=== PATIENT | male | born 1955 | race Caucasian/White ===

== ENCOUNTER 2022-03-28 11:25 | Outpatient (CLI) | payer OTHER, SELFPAY ==
[2022-03-28 14:29] LABS: TSH With Reflex to FT4* 0.192 uIU/mL (0.270-4.200)
== END 2022-03-28 11:26 | disposition home or self-care (01) ==
PROVIDERS: PCP Family Medicine; Visit Provider Family Medicine
DX: E03.9 Hypothyroidism, unspecified (principal)
CPT/HCPCS: 84439; 84443

== ENCOUNTER 2022-07-05 16:07 | Outpatient (CLI) | payer OTHER, SELFPAY | END 2022-07-05 16:08 | disposition home or self-care (01) | PROVIDERS: PCP Family Medicine; Visit Provider Family Medicine | DX: E03.9 Hypothyroidism, unspecified (principal) | CPT/HCPCS: 84443 ==

== ENCOUNTER 2022-08-08 13:49 | Outpatient (CLI) | payer OTHER, SELFPAY ==
[2022-08-08 22:01] LABS: Chloride* 103 mmol/L (96-114); Sodium* 138 mmol/L (135-149)
[2022-08-08 22:04] LABS: Carbon Dioxide* 31 mmol/L (20-32); Creatinine* 0.8 mg/dL (0.5-1.5); Estimated Glomerular Filt Rate 97 ml/min
[2022-08-08 22:05] LABS: Blood Urea Nitrogen* 12 mg/dL (7-30); Calcium* 8.9 mg/dL (8.4-10.6); Glucose* 94 mg/dL (60-115)
== END 2022-08-08 13:50 | disposition home or self-care (01) ==
LOC: LKVREF 13:50
PROVIDERS: PCP Family Medicine; Visit Provider Emergency Medicine
DX: Z01.818 Encounter for other preprocedural examination (principal)
CPT/HCPCS: 80048

== ENCOUNTER 2022-08-10 09:10 | Day surgery (SDC) | payer OTHER, SELFPAY ==
[2022-08-10] VITALS (10 sets, daily range): BP systolic 115–145; BP diastolic 81–106; PULSE 68–80; RESP 14–20; TEMP 36.4–36.8; O2SAT 95–98; BMI 32.6
[2022-08-10] MEDS: LACTATED RINGERS 1000 ML 1,000 ML 100 ML IV (09:40)
[2022-08-10] MEDS: SODIUM CHLORIDE 0.9 % (FLUSH) 10 ML SYRINGE IVF (09:40)
--- NOTE | 2022-08-10 09:52 | SUR.PREOP ---
VISUALIZED PATIENTS HOME COVID, RESULTS NEGATIVE.
[2022-08-10] MEDS: BUPIVACAINE 0.25% 30 ML INJECTION (11:25)
--- NOTE | 2022-08-10 11:28 | W.ANESCHARGE ---
Anesthesia Charges Start Date/Time Anesthesia Start Date: 08/10/22 Anesthesia Start Time: 11:09 Stop Date/Time Anesthesia Stop Date: 08/10/22 Anesthesia Stop Time: 12:10 Summary Emergency: No
--- NOTE | 2022-08-10 11:41 | W.ANESCHARGE ---
Anesthesia Charges Start Date/Time Anesthesia Start Date: 08/10/22 Anesthesia Start Time: 11:09 Stop Date/Time Anesthesia Stop Date: 08/10/22 Anesthesia Stop Time: 12:10 Summary Emergency: No
--- NOTE | 2022-08-10 12:04 | PM.GSPRC ---
Operative Note Date of procedure: 08/10/22 Pre-op diagnosis: Umbilical hernia Post-op diagnosis: Same Type of Procedure: Open umbilical hernia repair with mesh Procedure Description: After discussing the risks and benefits of the procedure, the patient signed informed consent.? The operative site was marked and the patient was brought to the operating room and placed on the operating table in supine position.? Care was taken to pad the patient's pressure points.?? The patient was then intubated by anesthesia.?? The operative site was then prepped and draped in the usual sterile fashion.? A time-out was then performed. Local anesthetic was injected into the fascia, skin and subcutaneous tissues. A curvilinear incision was made at the umbilicus. Dissection was carried down into the subcutaneous tissue using cautery. The hernia sac was encountered and care was taken to not enter it. Dissection was taken down to the fascia, and the umbilical stalk was carefully dissected off of the hernia sac. Once the hernia sac was dissected out circumferentially, it was reduced. The fascial edges were then cleared circumferentially. The hernia was 2 cm in size and so the decision was made to use a piece of mesh. A preperitoneal pocket was created using a combination of blunt dissection and cautery. Hemostasis appeared adequate. Once the posterior fascia was clear, a piece of Ventralex ST hernia mesh was placed in the preperitoneal space with care to ensure that it laid flat. This was secured into place using 2 0 PDS interrupted sutures. The tails were then trimmed and the fascial opening was closed with a 0 0 Nurolon in a [id number] fashion. The umbilicus was reapproximated to the fascia with Vicryl. The skin was then closed with running absorbable suture. A sterile dressing was then applied. ? The patient was then woken and transported to the recovery area in stable condition. ? The patient tolerated the procedure well. Indications: The patient is a 67-year-old male with an umbilical hernia that has become increasingly symptomatic for him. After discussion of risks and benefits he has elected to proceed with repair. Findings: 2 cm fat containing umbilical hernia repaired with mesh. Anesthesia: GETA Surgeon: Chanda Goel MD Estimated blood loss (mL): 5 Condition: stable Disposition: PACU
--- NOTE | 2022-08-10 12:39 | SUR.PHASEI ---
patient meets pacu d/c criteria
== END 2022-08-10 13:38 | disposition home or self-care (01) ==
PROVIDERS: PCP Family Medicine; Visit Provider Surgery
PROC: (CPT 49585; principal; 2022-08-10 10:45)
DX: K42.9 Umbilical hernia without obstruction or gangrene (principal)
CPT/HCPCS: 49585; 00830; C1781; J1100; J2250; J2405; J2704; J3010; J3490; J7120

== ENCOUNTER 2023-04-05 08:32 | Outpatient (CLI) | payer OTHER, SELFPAY | END 2023-04-05 08:33 | disposition home or self-care (01) | LOC: NFLDREF 04-07 11:01 | PROVIDERS: PCP Family Medicine; Referring Provider Family Medicine; Visit Provider Family Medicine | DX: Z00.00 Encounter for general adult medical examination without abnormal findings (principal); E03.9 Hypothyroidism, unspecified; R73.01 Impaired fasting glucose; N52.9 Male erectile dysfunction, unspecified; Z86.39 Personal history of other endocrine, nutritional and metabolic disease; Z13.6 Encounter for screening for cardiovascular disorders | CPT/HCPCS: 80048; 80061; 84153; 84443 ==

== ENCOUNTER 2024-06-10 08:23 | Outpatient (CLI) | payer MEDICARE, SELFPAY ==
--- OUTSIDE RECORDS SUMMARY | 2024-06-10 14:26 | XMS_ITS | Clinical Summary ---
Author Organization [facility] Address [address] [place] [address] Care Team Providers Care Brick Siding Applicator Name Role Phone Elsewhere, Pcp Primary Care Provider Unavailabl e Source Comments Patient records contain information from all sites at [facility]. For routine questions regarding patient records, call [phone] during business hours, M-F 8:00 AM - 5:00 PM Central Time. Record requests for emergency care only can be directed to [phone] at any time.[facility] Allergies Active Allergy Reactions Criticality Noted Date Comments Sulfa (Sulfonamide Antibiotics) Other (see comments) 07/26/2012 Medications * This document contains information received from the source organization and may not represent a complete record from that organization. tadalafil (CIALIS) 10 mg tablet Take 0.25-1 tablets by mouth daily as needed. 11/21/2016 Active naproxen (for_NAPROSYN) 500 mg tablet Take 1 tablet by mouth 2 (two) times a day as needed. 09/30/2015 Active loratadine (for_CLARITIN) 10 mg tablet Take 1 tablet by mouth daily. 02/01/2010 Active levothyroxine (for_SYNTHROID, LEVOTHROID) 100 mcg tablet Take 1 tablet by mouth daily. 11/22/2016 Active diazePAM (VALIUM) 5 mg tablet Take 0.5-1 tablets by mouth 3 (three) times a day as needed. Take one hour prior to dental appointments. 09/30/2015 Active carboxymethylce llulose (REFRESH LIQUIGEL) 1 % ophthalmic solution Refresh Liquigel 04/18/2011 Active FeroSuL 325 mg (65 mg iron) tablet Take 65 mg of iron by mouth daily. 02/25/2021 Active pantoprazole (PROTONIX) 40 mg EC tablet Take 40 mg by mouth daily. 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 Overview (01/02/2017): Spondylitis, ankylosing Immunizations Name Administration Dates Next Due Influenza, Seasonal, Injectable 05/29/2007 Influenza, Unspecified 06/02/2011 PPSV23 05/02/2005 Td Preservative Free (TENIVAC, DECAVAC) 05/02/20 Tdap 08/28/2013 Social History Tobacco Use Types Packs/Day Years Used Date Smoking Tobacco: Former Cigarettes Smokeless Tobacco: Never Tobacco Cessation:Counseling Given: No Alcohol Use Standard Drinks/Week Comments No 0 (1 standard drink = 0.6 oz pur e alcohol) Humiliation, Afraid, Rape, and Kick questionnair e Answer Date Recorded Within the last year, have y ou been afraid of your partner or ex-partner? No 04/12/2023 Within the last year, have y ou been humiliated or emotionally abused in other ways by your partner or ex-partner? No Within the last year, have y ou been kicked, hit, slapped, or otherwise physically hurt by your partner or ex-partner? No 04/12/2023 Within the last year, have y ou been raped or forced to have any kind of sexual activity by your partner or ex-partner? No 04/12/2023 Social Connection and Isolat ion Panel [NHANES] Answer Date Recorded In a typical week, how many times do you talk on the phone with family, friends, or neighbors? More than three times a week 03/17/2021 How often do you get togethe r with friends or relatives? Twice a week 03/17/2021 How often do you attend [facility] or voodoo services? 1 to 4 times per year 03/17/2021 Do you belong to any clubs o r organizations such as catholic groups, unions, fraternal or athletic groups, or school groups? Yes 03/17/2021 How often do you attend meet ings of the clubs or organizations you belong to? More than 4 times per year 03/17/2021 Are you , , di vorced, , never , or living with a partner? 03/17/2021 AUDIT-C Answer Date Recorded Q1: How often do you have a drink containing alc ohol? Never 03/17/2021 Average Number of Drinks Not on file 021 Frequency of Binge Drinking Not on file 12/2020 Overall Financial Resource Strain (CARDIA) Answe r Date Recorded How hard is it for you to pa y for the very basics like food, housing, medical care, and heating? Not hard at all 04/12/2023 PHQ-2 Answer Date Recorded PHQ-2 Score 0 04/11/2021 [facility] Occupat [facility] - Occupational Stress Questionnaire Answer Date Recorded Do you feel stress - tense, restless, nervous, or anxious, or unable to sleep at night because your mind is troubled all the time - these days? Only a little 03/17/2021 Exercise Vital Sign Answer Date Recorde d On average, how many days pe r week do you engage in moderate to strenuous exercise (like a brisk walk)? 2 days 04/12/2023 On average, how many minutes do you engage in exercise at this level? 30 min 04/12/2023 Hunger Vital Sign Answer Date Recorded Within the past 12 months, y ou worried that your food would run out before you got the money to buy more. Never true 04/12/20 23 Within the past 12 months, t he food you bought just didn't last and you didn't have money to get more. Never true 04/12/2023 PRAPARE - Transportation Answer Date Re corded In the past 12 months, has l ack of transportation kept you from medical appointments or from getting medications? No 03/15 In the past 12 months, has l ack of transportation kept you from meetings, work, or from getting things needed for daily living? No 04/12/2023 Nutrition Answer Date Recorded Nutrition: EVOO Fat Source Yes 04/12 On average, how many serving s of fruits and vegetables do you eat per day (serving size is equal to 1 cup or approximately the size of a tennis ball)? 5 or more 04/12/2023 Dental Answer Date Recorded Dental: Regular Dentist Yes 08/20/19 Employment Answer Date Recorded Employment status Retired 04/12/2023 Housing Stability Answer Date Recorded What is your living situation today? I have a [facility] place to live 04/12/2023 Education Answer Date Recorded What is the highest level of school you have completed or the highest degree you have received? Associate degree: occupational, technical, or vocational program 03/17/2021 Sex and Gender Information Value Date Recorded Sex Assigned at Male 12/27/2019 6:45 PM CDT Legal Sex Male 10:19 PM HEAD BAKER Gender Identity Male 09/14/2017 7:49 AM HEAD BAKER Sexual Orientation Straight 09/14/2017 7: 49 AM HEAD BAKER Last Filed Vital Signs Vital Sign Reading Time Taken Comments Blood Pressure 127/87 04/11/2021 8:41 AM CDT Pulse 65 04/11/2021 8:41 AM CDT Temperature 36.1 ??C (97 ??F) 04/11/2021 8:41 AM CDT Respiratory Rate 16 04/11/2021 8:41 AM CDT Oxygen Saturation 98% 04/11/2021 8:41 AM CDT Inhaled Oxygen Concentration - - Weight 85.5 kg (188 lb 7.9 oz) 04/11/2021 8:41 A M CDT Height 168.2 cm (5' 6.22) 04/11/2021 8:41 AM CD T Body Mass Index 30.22 04/11/2021 8:41 AM CDT Plan of Treatment Health Maintenance Due Date Last Done Comments Abdominal Aortic Aneurysm (A AA) Screen 1955 CT Colonography 1955 Cologuard 1955 FIT 1955 Hepatitis C Screening 1955 Zoster Vaccines (1 of 2) 2005 Fasting Glucose for Diabetes Screening 08/28/2016 08/28/2013, 03/05/2012 Thyroid Stimulating Hormone (TSH) test for thyroid function 11/21/2017 11/21/2016, 05/15/2013, 09/02/2012, Additional history exists Pneumococcal vaccine (65+ ye ars) (2 of 2 - PCV) 2020 05/02/2005 Depression Screening (Annual PHQ-2) 08/13/2023 Fall Risk Screen (Annual) 08/13/2023 DTaP,Tdap,and Td Vaccines (2 - Td or Tdap) 08/28/2023 08/28/2013, 05/02/2005 COVID-19 Vaccine (1 - 2023-2 5 season) 2024 Influenza Vaccine (#1) 2024 1, 05/29/2011, 05/30/2010, Additional history exists Colonoscopy 04/29/2031 04/29/2021, 05/30/2005 Colorectal Cancer Screening 04/29/2031 Procedures Procedure Name Priority Date/Time Associated Diagnosis Comments THYROID-STIMULATING HORMONE-SENSITIVE (S-TSH) Routine 11/21/2016 11:32 AM CDT RENAL FUNCTION PANEL, S Routine 08/28/2013 9:53 AM HEAD BAKER from Last 3 Months or Most Recently Relevant to Health Maintenance Results * Thyroid-Stimulating Hormone-Sensitive (s-TSH) (11/21/2016 11:32 AM CDT) TSH (Thyrotropin) 1.20 0.27 - 4.20 MIUL POWERCHART Comment: Biotin has been identified by the wood router hand as a potential interfering substance. Higher concentrations of biotin may be found in multivitamins, hair/nail supplements, and workout supplements. If the result does not match clinical observations, repeat testing after patient refrains from the use of supplements for at least 12 hours. Blood 11/21/2016 11:3 2 AM CDT us Meghann Felix APRN, C.N.P., M.S.N. LAB BLO OD ADD-ON Final Result POWERCHART * (ABNORMAL) Renal Function Panel (08/28/2013 9:53 AM HEAD BAKER) BUN (Blood Urea Nitrogen), S 13 8 - 24 MGDL POWERCHART Chloride, S 100 98 - 107 MMOLL POWERCHART CO2 Total 30(H) 22 - 29 MMOLL POWERCHART Creatinine 0.8 0.8 - 1.3 MGDL POWERCHART Glucose 103 70 - 139 MGDL POWERCHART Calcium, Total, S 9.2 8.9 - 10.1 MGDL POWERCHART Sodium, S 138 135 - 145 MMOLL POWERCHART Potassium, S 4.1 3.6 - 5.2 MMOLL POWERCHART Albumin, S 4.2 3.2 - 5.2 GDL POWERCHART Phosphorus (Inorganic), S 2.7 2.5 - 4.5 MGDL POWERCHART HXeGFR (MDRD) >60 >=60 [id number] POWERCHART HXCA Corrected 9(H) 0 - 0 MGDL POWERCHART eGFR Black/ >60 >=60 [id number] POWERCHART Blood 08/28/2013 9:53 AM HEAD BAKER us Kenny Foster M.D. LAB BLOOD ADD-ON Final Resul t POWERCHART from Last 3 Months or Most Recently Relevant to Health Maintenance Care Teams Brick Siding Applicator Relationship Specialty Start Date End Date Elsewhere, Pcp PCP - General Family Medicine 04/04/18
--- OUTSIDE RECORDS SUMMARY | 2024-06-10 14:27 | XMS_ITS | Encounter Summary ---
Author Organization [facility] Address [address] [place] [address] Care Team Providers Care Associate Entertainment Editor Name Role Phone Elsewhere, Pcp Primary Care Provider Unavailabl e Encounter Details Date Type Department Care Team (Late st Contact Info) Description 09/09/2014 Historical Ophthalmology [facility] Ever Remy Jr., M.D. [address] [place] [phone] Social History Tobacco Use Types Packs/Day Years Used Date Smoking Tobacco: Never Assessed Sex and Gender Information Value Date Recorded Sex Assigned at Male 12/27/2019 6:45 PM CDT Legal Sex Male 10:19 PM CHIEF SPECIALIST LEED Gender Identity Male 09/14/2017 7:49 AM CHIEF SPECIALIST LEED Sexual Orientation Straight 09/14/2017 7: 49 AM CHIEF SPECIALIST LEED documented as of this encounter Progress Notes * Ever Remy M.D. - 09/09/2014 1:04 PM CST Eye General HISTORY OF PRESENT ILLNESS PT WITHOUT CONCERNS. IMPRESSION / REPORT / PLAN A) Doing well, s/p ACIOL OS for IOL exchange for dislocated IOL P) MR only if desired, RTo 1year CDM Reports - EYEGEN Id: [id number] Status: Fnl documented in this encounter Plan of Treatment Not on file documented as of this encounter Visit Diagnoses Not on filedocumented in this encounter Additional Health Concerns Infection Onset Date Last Indicated Resolved Time COVID19 Pending 04/24/2021 2021 04/27/2021 9 :07 AM CDT documented as of this encounter Care Teams Associate Entertainment Editor Relationship Specialty Start Date End Date Elsewhere, Pcp PCP - General Family Medicine 04/04/18 documented as of this encounter
--- OUTSIDE RECORDS SUMMARY | 2024-06-10 14:27 | XMS_ITS | Referral Summary ---
Author Organization [facility] Address [address] [place] [address] Care Team Providers Care Metal Numerical Tool Programmer Name Role Phone Elsewhere, Pcp Primary Care Provider Unavailabl e Source Comments Patient records contain information from all sites at [facility]. For routine questions regarding patient records, call [phone] during business hours, M-F 8:00 AM - 5:00 PM Central Time. Record requests for emergency care only can be directed to [phone] at any time.[facility] Allergies Active Allergy Reactions Criticality Noted [...] week 03/17/2021 How often do you attend [facility] or adventist services? 1 to 4 times per year 03/17/2021 Do you belong to any clubs o r organizations such as evangelical groups, unions, fraternal or athletic groups, or [...] Answer Date Recorded PHQ-2 Score 0 04/11/2021 [facility] of Occupat ional [facility] - Occupational Stress Questionnaire Answer Date Recorded [...] your living situation today? I [facility] [employer] [facility] to live 04/12/2023 Education Answer Date Recorded What is the highest level of school you have completed or the highest degree you have received? Associate degree: occupational, technical, or vocational program 03/17/2021 Sex and Gender Information Value Date Recorded Sex Assigned at Male 12/27/2019 6:45 PM CDT Legal Sex Male 10:19 PM CAUSTICS LOADER Gender Identity Male 09/14/2017 7:49 AM CAUSTICS LOADER Sexual Orientation Straight 09/14/2017 7: 49 AM CAUSTICS LOADER Last Filed Vital Signs Vital Sign Reading [...] 04/11/2021 8:41 AM CDT Plan of Treatment Not on file Procedures Procedure Name Priority Date/Time Associated Diagnosis Comments THYROID-STIMULATING HORMONE-SENSITIVE (S-TSH) Routine 11/21/2016 11:32 AM CDT RENAL FUNCTION PANEL, S Routine 08/28/2013 9:53 AM CAUSTICS LOADER from Last 3 Months or Most Recently Relevant to Health Maintenance Results * Thyroid-Stimulating Hormone-Sensitive (s-TSH) (11/21/2016 11:32 AM CDT) TSH (Thyrotropin) 1.20 0.27 - 4.20 MIUL POWERCHART Comment: Biotin has been identified by the oracle database developer as a potential interfering substance. Higher concentrations of biotin may be found in multivitamins, hair/nail supplements, and workout supplements. If the result does not match clinical observations, repeat testing after patient refrains from the use of supplements for at least 12 hours. Blood 11/21/2016 11:3 2 AM CDT us Andrés Villarreal APRN.N.P., M.S.N. LAB BLO OD ADD-ON Final Result POWERCHART * (ABNORMAL) Renal Function Panel (08/28/2013 9:53 AM CAUSTICS LOADER) BUN (Blood Urea Nitrogen), S 13 8 [...] 4.5 MGDL POWERCHART HXeGFR (MDRD) >60 >=60 [id number] POWERCHART HXCA Corrected 9(H) 0 - 0 MGDL POWERCHART eGFR Black/ >60 >=60 [id number] POWERCHART Blood 08/28/2013 9:53 AM CAUSTICS LOADER us Kenny Foster M.D. LAB BLOOD ADD-ON Final Resul t POWERCHART from Last 3 Months or Most Recently Relevant to Health Maintenance Care Teams Metal Numerical Tool Programmer Relationship Specialty Start Date End Date Elsewhere, Pcp PCP - General Family Medicine 04/04/18
--- OUTSIDE RECORDS SUMMARY | 2024-06-10 14:27 | XMS_ITS | Encounter Summary ---
Author Organization [facility] Address [address] [place] [address] Care Team Providers Care Director Of Occupational Therapy Name Role Phone Elsewhere, Pcp Primary Care Provider Unavailabl e Encounter Details Date Type Department Care Team (Late st Contact Info) Description 11/06/2016 Historical Ophthalmology [facility] Ever Remy Jr., M.D. [address] [place] [phone] Social History Tobacco Use Types Packs/Day Years Used Date Smoking Tobacco: Never Sex and Gender Information Value Date Recorded Sex Assigned at Male 12/27/2019 6:45 PM CDT Legal Sex Male 10:19 PM PLANOGRAPH OPERATOR Gender Identity Male 09/14/2017 7:49 AM PLANOGRAPH OPERATOR Sexual Orientation Straight 09/14/2017 7: 49 AM PLANOGRAPH OPERATOR documented as of this encounter Progress Notes * Ever Remy M.D. - 11/06/2016 9:39 AM CDT Eye General CHIEF COMPLAINT CE HISTORY OF PRESENT ILLNESS Last exam was 1 year ago Pt. denies any changes to the [facility] No concerns with eyes and [facility] at this time IMPRESSION / REPORT / PLAN #1 Pseudophakia, OS, stable #2 Nuclear sclerosis RTO 1 year, new MR if desired Computer glasses given; single vision. DIAGNOSIS #1 Pseudophakia, OS, stable #2 Nuclear sclerosis CDM Reports - EYEGEN Id: [id number] Status: Fnl documented in this encounter Plan of Treatment Not on file documented as of this encounter Visit Diagnoses Not on filedocumented in this encounter Additional Health Concerns Infection Onset Date Last Indicated Resolved Time COVID19 Pending 04/24/2021 2021 04/27/2021 9 :07 AM CDT documented as of this encounter Care Teams Director Of Occupational Therapy Relationship Specialty Start Date End Date Elsewhere, Pcp PCP - General Family Medicine 04/04/18 documented as of this encounter
--- OUTSIDE RECORDS SUMMARY | 2024-06-10 14:27 | XMS_ITS | Clinical Summary ---
Author Organization [facility] Address [place], [place] [address] Care Team Providers Care Motion Picture Set Up Worker Name Role Phone Meghann Felix NP Primary Care Provider [phone]- [phone] Allergies Active Allergy Reactions Criticality Noted Date Comments Sulfa (Sulfonamide Antibiotics) *Unknown 07/13 Medications Medication Sig Dispensed Refills Start Date End Date Status levothyroxine (Synthroid) 100 mcg tablet Take by mouth once daily. Active NAPROXEN ORAL Take by mouth once daily if needed. Active ferrous sulfate, 65 mg elemental, tablet Take by mouth. 02/25/2021 Act andrzej pantoprazole (PROTONIX) 40 mg delayed-release tablet Take 40 mg by mouth. 03/04/2021 Active diazePAM (VALIUM) 0.5 mg as quarter tablet Take by mouth every 6 hours if needed. Active loratadine (Claritin) 10 mg tablet Take 10 mg by mouth once daily. 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 Overview (08/01/2009): Left Eye Resolved Problems Problem Noted Date Diagnosed Date Resolved Date Lens subluxation 07/31/2009 08/01/2009 Overview (07/31/2009): Left Eye Social History Tobacco Use Types Packs/Day Years Used Date Smoking Tobacco: Former Smokeless Tobacco: Never Alcohol Use Standard Drinks/Week Comments No 0 (1 standard drink = 0.6 oz pur e alcohol) Sex and Gender Information Value Date Recorded Sex Assigned at Not on file Gender Identity Not on file Sexual Orientation Not on file Obstetrics History Last Filed Vital Signs Vital Sign Reading Time Taken Comments Blood Pressure 149/89 07/27/2022 8:28 AM PACKING ROOM INSPECTOR Pulse 79 07/27/2022 8:28 AM PACKING ROOM INSPECTOR Temperature 36.7 ??C (98 ??F) 07/27/2022 8:28 AM PACKING ROOM INSPECTOR Respiratory Rate 20 07/27/2022 8:28 AM PACKING ROOM INSPECTOR Oxygen Saturation 95% 07/27/2022 8:28 AM PACKING ROOM INSPECTOR Inhaled Oxygen Concentration - - Weight 86.2 kg (190 lb) 07/27/2022 8:28 AM PACKING ROOM INSPECTOR Height 168.2 cm (5' 6.22) 04/29/2021 12:46 PM C DT Body Mass Index 30.46 04/29/2021 12:46 PM CDT Plan of Treatment Health Maintenance Due Date Last Done Comments Tdap 1966 Depression screening for age 12+ 1967 BMI (ht and wt on same day) for age 18+ 1973 Hepatitis C screening for age 18-79 1973 Tetanus booster 1975 Lipids for age 45-75 2000 Zoster (shingles) series for age 50+ (1 of 2) 04/26/20 05 Pneumococcal series for age 65+ (1 of 1 - PCV) 020 COVID-19 vaccine series ( - 2023- season) 4 Influenza for age 65+ 04/13/2024 Colonoscopy through age 75 04/29/2031 04/29/2021 Medical Devices Implanted Type Area Short Filler Bunch Machine Operator Device Identifier Shelf Expiration Date Model / Serial / Lot Lens Iol 11.5 [id number] gical - [id number] Implanted:Qty: 1 on 08/01/[address] [facility] Left: [employer] 01/11/2011 [id number]# / [id number] / Procedures Procedure Name Priority Date/Time Associated Diagnosis Comments COLONOSCOPY 04/29/2021 2:14 PM CDT from Last 3 Months or Most Recently Relevant to Health Maintenance Results * COLONOSCOPY (04/29/2021 2:14 PM CDT) 04/29/2021 2:14 PM CDT Narrative Transcriptions FromKen white MD - 04/29/2021 3:03 PM CDT Patient Name: Eliazar Mack Procedure Date: 04/29/2021 Gender: Male Date of : 1955 Admit Type: Ambulatory Procedure: Colonoscopy Proceduralist: Tang Li [facility] Referring MD: Scott Young Indications/Pre-Op Diagnosis: Screening for colorectal malignantneoplasm Medications: Propofol per Anesthesia Procedure Description: The procedure, indications, potential complications, (bleeding, perforation, infection, adverse medication reaction, missed lesionsor polyps) and alternatives available were explained to the patient, who appeared to understand and indicated this. Opportunity for questionswas provided and informed consent obtained. The colonoscope was passed through the anus and advanced to thececum, identified by appendiceal orifice and ileocecal valve. Thecolonoscopy was performed with ease. The patient tolerated the procedure well.The quality of the bowel preparation was evaluated using the BBPS ([place] Bowel Preparation Scale) with scores of: Right Colon = 3, Transverse Colon = 3 and Left Colon = 3 (entire mucosa seen well with noresidual staining, small fragments of stool or opaque liquid). The total BBPS score equals 9. Complications: No immediate complications. Estimated Blood Loss & Specimen: Estimated blood loss: none. Specimen collected: None Findings: The perianal and digital rectal examinations were normal. Pertinent negatives include normal sphincter tone. Normal appearing ileocecal valve The colon (entire examined portion) appeared normal. No additional abnormalities were found on retroflexion. Impressions/Post-Op Diagnosis: - The entire examined colon is normal. - No specimens collected. Recommendation: - Repeat colonoscopy in 10 years for screening purposes. Moderate Sedation: Deep sedation per anesthesia. Tang Li, 04/29/2021 3:03:38 PM This report has been signed electronically. Note Initiated On: 04/29/2021 2:14 PM Ken Li MD PROCEDURE ORD from Last 3 Months or Most Recently Relevant to Health Maintenance Advance Directives * Full Code (Latest Code Status on File) Date Activated Date Inactivated Comments 04/29/2021 12:39 PM 04/29/2021 6:33 PM Question Answer Comments Code Status Discussion: Not Discussed * Full Code Date Activated Date Inactivated Comments 08/01/2009 11:00 AM 08/01/2009 6:47 PM Care Teams Motion Picture Set Up Worker Relationship Specialty Start Date End Date Meghann Felix NP [address] [place] [phone] PCP - General 11/22/16
--- OUTSIDE RECORDS SUMMARY | 2024-06-10 14:27 | XMS_ITS ---
Author Organization [facility] Address [address] [place] [address] Care Team Providers Care Production Maintenance Mechanic Name Role Phone Unavailable Unavailable Unavailable Surgery Details Not on file Complications Check Surgery Details section. Procedure Estimated Blood Loss Check Surgery Details section. Procedure Findings Check Surgery Details section. Procedure Specimens Taken Check Surgery Details section.
--- OUTSIDE RECORDS SUMMARY | 2024-06-10 14:27 | XMS_ITS | Encounter Summary ---
Author Organization [facility] Address [address] [place] [address] Care Team Providers Care Oxyacetylene Burner Name Role Phone Elsewhere, Pcp Primary Care Provider Unavailabl e Encounter Details Date Type Department Care Team (Late st Contact Info) Description 09/13/2015 Historical Ophthalmology [facility] Ever Remy Jr., M.D. [address] [place] [phone] Social History Tobacco Use Types Packs/Day Years Used Date Smoking Tobacco: Never Assessed Sex and Gender Information Value Date Recorded Sex Assigned at Male 12/27/2019 6:45 PM CDT Legal Sex Male 10:19 PM UX DESIGN MANAGER Gender Identity Male 09/14/2017 7:49 AM UX DESIGN MANAGER Sexual Orientation Straight 09/14/2017 7: 49 AM UX DESIGN MANAGER documented as of this encounter Progress Notes * Ever Remy M.D. - 09/13/2015 9:02 AM CST Eye General CHIEF COMPLAINT CE HISTORY OF PRESENT ILLNESS No changes with eyes, still needing artificial tears. IMPRESSION / REPORT / PLAN #1 Pseudophakia, OS, stable #2 Nuclear sclerosis RTO 1 year, new MR if desired DIAGNOSIS #1 Pseudophakia, OS, stable #2 Nuclear sclerosis CDM Reports - EYEGEN Id: [id number] Status: Fnl documented in this encounter Plan of Treatment Not on file documented as of this encounter Visit Diagnoses Not on filedocumented in this encounter Additional Health Concerns Infection Onset Date Last Indicated Resolved Time COVID19 Pending 04/24/2021 2021 04/27/2021 9 :07 AM CDT documented as of this encounter Care Teams Oxyacetylene Burner Relationship Specialty Start Date End Date Elsewhere, Pcp PCP - General Family Medicine 04/04/18 documented as of this encounter
== END 2024-06-10 08:24 | disposition home or self-care (01) ==
LOC: LKVREF 14:25
PROVIDERS: PCP Family Medicine; Referring Provider Family Medicine; Visit Provider Family Medicine
DX: B99.9 Unspecified infectious disease (principal); Z12.5 Encounter for screening for malignant neoplasm of prostate; Z13.1 Encounter for screening for diabetes mellitus; Z13.6 Encounter for screening for cardiovascular disorders
CPT/HCPCS: 80053; 80061; 82784; 82787; G0103

== ENCOUNTER 2024-06-13 15:05 | Outpatient (CLI) | payer MEDICARE, SELFPAY ==
--- OUTSIDE RECORDS SUMMARY | 2024-06-13 15:08 | XMS_ITS | Clinical Summary ---
Author Organization [facility] Address [place], [place] [address] Care Team Providers Care Bi Analyst Name Role Phone Meghann Felix NP Primary Care Provider +1- [phone] Allergies Active Allergy Reactions Criticality Noted Date [...] Comments Blood Pressure 149/89 07/27/2022 8:28 AM HELICOPTER REPAIRER Pulse 79 07/27/2022 8:28 AM HELICOPTER REPAIRER Temperature 36.7 ??C (98 ??F) 07/27/2022 8:28 AM HELICOPTER REPAIRER Respiratory Rate 20 07/27/2022 8:28 AM HELICOPTER REPAIRER Oxygen Saturation 95% 07/27/2022 8:28 AM HELICOPTER REPAIRER Inhaled Oxygen Concentration - - Weight 86.2 kg (190 lb) 07/27/2022 8:28 AM HELICOPTER REPAIRER Height 168.2 cm (5' 6.22) 04/29/2021 12:46 [...] 04/29/2031 04/29/2021 Medical Devices Implanted Type Area Foundation Stage Teacher Device Identifier Shelf Expiration Date Model / Serial / Lot Lens Iol 11.5 [id number] gical - [id number] Implanted:Qty: 1 on 08/01/2009 at [facility] Left: [employer] 01/11/2011 [id number] / [id number] / Procedures Procedure Name Priority Date/Time Associated [...] Type: Ambulatory Procedure: Colonoscopy Proceduralist: Tang Li [facility] Referring MD: Scott Young Indications/Pre-Op Diagnosis: [...] bowel preparation was evaluated using the BBPS ([place] Bowel Preparation Scale) with scores of: Right [...] 11:00 AM 08/01/2009 6:47 PM Care Teams Bi Analyst Relationship Specialty Start Date End Date Meghann Felix NP [address] [place] [phone] PCP - General 11/22/16
--- OUTSIDE RECORDS SUMMARY | 2024-06-13 15:08 | XMS_ITS ---
Author Organization [facility] Address [address] [place] [address] Care Team Providers Care Electric Furnace Operator Name Role Phone Unavailable Unavailable Unavailable Surgery Details Not on file Complications Check Surgery Details section. Procedure Estimated Blood Loss Check Surgery Details section. Procedure Findings Check Surgery Details section. Procedure Specimens Taken Check Surgery Details section.
--- OUTSIDE RECORDS SUMMARY | 2024-06-13 15:08 | XMS_ITS | Encounter Summary ---
Author Organization [facility] Address [address] [place] [address] Care Team Providers Care Tube And Manifold Builder Name Role Phone Elsewhere, Pcp Primary Care Provider Unavailabl e Encounter Details Date Type Department Care Team (Late st Contact Info) Description 09/13/2015 Historical Ophthalmology [facility] Ever Remy Jr., M.D. [address] [place] [phone] Social History Tobacco Use Types Packs/Day Years Used Date Smoking Tobacco: Never Assessed Sex and Gender Information Value Date Recorded Sex Assigned at Male 12/27/2019 6:45 PM CDT Legal Sex Male 10:19 PM ELECTRICAL ASSEMBLY SUPERVISOR Gender Identity Male 09/14/2017 7:49 AM ELECTRICAL ASSEMBLY SUPERVISOR Sexual Orientation Straight 09/14/2017 7: 49 AM ELECTRICAL ASSEMBLY SUPERVISOR documented as of this encounter Progress Notes [...] Nuclear sclerosis CDM Reports - EYEGEN Id: [id number] Status: Fnl documented in this encounter Plan of Treatment Not on file documented as of this encounter Visit Diagnoses Not on filedocumented in this encounter Additional Health Concerns Infection Onset Date Last Indicated Resolved Time COVID19 Pending 04/24/2021 2021 04/27/2021 9 :07 AM CDT documented as of this encounter Care Teams Tube And Manifold Builder Relationship Specialty Start Date End Date Elsewhere, Pcp PCP - General Family Medicine 04/04/18 documented as of this encounter
--- OUTSIDE RECORDS SUMMARY | 2024-06-13 15:08 | XMS_ITS | Referral Summary ---
Author Organization [facility] Address [address] [place] [address] Care Team Providers Care Tube Machine Operator Helper Name Role Phone Elsewhere, Pcp Primary Care Provider Unavailabl e Source Comments Patient records contain information from all sites at [facility]. For routine questions regarding patient records, call [phone] during business hours, M-F 8:00 AM - 5:00 PM Central Time. Record requests for emergency care only can be directed to [phone] at any time.[facility] Allergies Active Allergy Reactions Criticality Noted Date [...] week 03/17/2021 How often do you attend [facility] or anabaptist services? 1 to 4 times per year 03/17/2021 Do you belong to any clubs o r organizations such as orthodoxy groups, unions, fraternal or athletic groups, or [...] Answer Date Recorded PHQ-2 Score 0 04/11/2021 [facility] of Occupat ional [facility] - Occupational Stress Questionnaire Answer Date [...] your living situation today? I have a [facility] place to live 04/12/2023 Education Answer Date Recorded What is the highest level of school you have completed or the highest degree you have received? Associate degree: occupational, technical, or vocational program 03/17/2021 Sex and Gender Information Value Date Recorded Sex Assigned at Male 12/27/2019 6:45 PM CDT Legal Sex Male 10:19 PM ESTIMATOR PAPERBOARD BOXES Gender Identity Male 09/14/2017 7:49 AM ESTIMATOR PAPERBOARD BOXES Sexual Orientation Straight 09/14/2017 7: 49 AM ESTIMATOR PAPERBOARD BOXES Last Filed Vital Signs Vital Sign Reading [...] FUNCTION PANEL, S Routine 08/28/2013 9:53 AM ESTIMATOR PAPERBOARD BOXES from Last 3 Months or Most Recently Relevant to Health Maintenance Results * Thyroid-Stimulating Hormone-Sensitive (s-TSH) (11/21/2016 11:32 AM CDT) TSH (Thyrotropin) 1.20 0.27 - 4.20 MIUL POWERCHART Comment: Biotin has been identified by the icer machine operator as a potential interfering substance. Higher concentrations [...] (ABNORMAL) Renal Function Panel (08/28/2013 9:53 AM ESTIMATOR PAPERBOARD BOXES) BUN (Blood Urea Nitrogen), S 13 8 [...] 4.5 MGDL POWERCHART HXeGFR (MDRD) >60 >=60 [id number] POWERCHART HXCA Corrected 9(H) 0 - 0 MGDL POWERCHART eGFR Black/ >60 >=60 [id number] POWERCHART Blood 08/28/2013 9:53 AM ESTIMATOR PAPERBOARD BOXES us Kenny Foster M.D. LAB BLOOD ADD-ON Final Resul t POWERCHART from Last 3 Months or Most Recently Relevant to Health Maintenance Care Teams Tube Machine Operator Helper Relationship Specialty Start Date End Date Elsewhere, Pcp PCP - General Family Medicine 04/04/18
--- OUTSIDE RECORDS SUMMARY | 2024-06-13 15:08 | XMS_ITS | Clinical Summary ---
Author Organization [facility] Address [address] [place] [address] Care Team Providers Care Wood Fence Erector Name Role Phone Elsewhere, Pcp Primary Care Provider Unavailabl e Source Comments Patient records contain information from all sites at [facility]. For routine questions regarding patient records, call [phone] during business hours, M-F 8:00 AM - 5:00 PM Central Time. Record requests for emergency care only can be directed to [phone] at any time.[facility] Allergies Active Allergy Reactions Criticality Noted Date [...] week 03/17/2021 How often do you attend [facility] or latter-day services? 1 to 4 times per year 03/17/2021 Do you belong to any clubs o r organizations such as rastafarian groups, unions, fraternal or athletic groups, or [...] Answer Date Recorded PHQ-2 Score 0 04/11/2021 [facility] of Occupat ional [facility] - Occupational Stress Questionnaire Answer Date Recorded [...] PM CDT Legal Sex Male 10:19 PM ELEMENTARY READING SPECIALIST Gender Identity Male 09/14/2017 7:49 AM ELEMENTARY READING SPECIALIST Sexual Orientation Straight 09/14/2017 7: 49 AM ELEMENTARY READING SPECIALIST Last Filed Vital Signs Vital Sign Reading [...] Date Last Done Comments Abdominal Aortic Aneurysm (AAA) Screen 1955 CT Colonography 1955 Cologuard 1955 FIT 1955 Hepatitis C Screening 1955 Zoster Vaccines (1 of 2) 2005 Fasting Glucose for Diabetes Screening 08/28/2016 08/28/2013, 03/05/2012 Thyroid Stimulating Hormone (TSH) test for thyroid function 11/21/2017 11/21/2016, 05/15/2013, 09/02/2012, Additional history exists Pneumococcal vaccine (65+ years) (2 of 2 - PCV) 2020 05/02/2005 Depression Screening (Annual PHQ-2) 08/13/2023 Fall Risk Screen (Annual) 08/13/2023 DTaP,Tdap,and Td Vaccines (2 - Td or Tdap) 08/28/2023 08/28/2013, 05/02/2005 COVID-19 Vaccine (1 - 2023- season) 2024 Influenza Vaccine (#1) 2024 1, 05/29/2011, 05/30/2010, Additional history exists Colonoscopy 04/29/2031 04/29/2021, 05/30/2005 Colorectal Cancer Screening 04/29/2031 IPV Vaccines Aged Out No longer eligi ble based on patient's age to complete this topic Procedures Procedure Name Priority Date/Time Associated Diagnosis Comments THYROID-STIMULATING HORMONE-SENSITIVE (S-TSH) Routine 11/21/2016 11:32 AM CDT RENAL FUNCTION PANEL, S Routine 08/28/2013 9:53 AM ELEMENTARY READING SPECIALIST from Last 3 Months or Most Recently Relevant to Health Maintenance Results * Thyroid-Stimulating Hormone-Sensitive (s-TSH) (11/21/2016 11:32 AM CDT) TSH (Thyrotropin) 1.20 0.27 - 4.20 MIUL POWERCHART Comment: Biotin has been identified by the lockstitch waistband setter as a potential interfering substance. Higher concentrations [...] (ABNORMAL) Renal Function Panel (08/28/2013 9:53 AM ELEMENTARY READING SPECIALIST) BUN (Blood Urea Nitrogen), S 13 8 [...] 4.5 MGDL POWERCHART HXeGFR (MDRD) >60 >=60 [id number] POWERCHART HXCA Corrected 9(H) 0 - 0 MGDL POWERCHART eGFR Black/ >60 >=60 [id number] POWERCHART Blood 08/28/2013 9:53 AM ELEMENTARY READING SPECIALIST Kenny Foster M.D. LAB BLOOD ADD-ON Final Resul t POWERCHART from Last 3 Months or Most Recently Relevant to Health Maintenance Care Teams Wood Fence Erector Relationship Specialty Start Date End Date Elsewhere, Pcp PCP - General Family Medicine 04/04/18
--- OUTSIDE RECORDS SUMMARY | 2024-06-13 15:08 | XMS_ITS | Encounter Summary ---
Author Organization [facility] Address [address] [place] [address] Care Team Providers Care Ad Taker Name Role Phone Elsewhere, Pcp Primary Care Provider Unavailabl e Encounter Details Date Type Department Care Team (Late st Contact Info) Description 09/09/2014 Historical Ophthalmology [facility] Ever Remy Jr., M.D. [address] [place] [phone] Social History Tobacco Use Types Packs/Day Years Used Date Smoking Tobacco: Never Assessed Sex and Gender Information Value Date Recorded Sex Assigned at Male 12/27/2019 6:45 PM CDT Legal Sex Male 10:19 PM ADMISSIONS MANAGER RN Gender Identity Male 09/14/2017 7:49 AM ADMISSIONS MANAGER RN Sexual Orientation Straight 09/14/2017 7: 49 AM ADMISSIONS MANAGER RN documented as of this encounter Progress Notes * Ever Rmey M.D. - 09/09/2014 1:04 PM CST Eye General HISTORY OF PRESENT ILLNESS PT WITHOUT CONCERNS. IMPRESSION / REPORT / PLAN A) Doing well, s/p ACIOL OS for IOL exchange for dislocated IOL P) MR only if desired, RTo 1year CDM Reports - EYEGEN Id: [id number] Status: Fnl documented in this encounter Plan of Treatment Not on file documented as of this encounter Visit Diagnoses Not on filedocumented in this encounter Additional Health Concerns Infection Onset Date Last Indicated Resolved Time COVID19 Pending 04/24/2021 2021 04/27/2021 9 :07 AM CDT documented as of this encounter Care Teams Ad Taker Relationship Specialty Start Date End Date Elsewhere, Pcp PCP - General Family Medicine 04/04/18 documented as of this encounter
--- OUTSIDE RECORDS SUMMARY | 2024-06-13 15:08 | XMS_ITS | Encounter Summary ---
Author Organization [facility] Address [address] [place] [address] Care Team Providers Care Home Visitor Name Role Phone Elsewhere, Pcp Primary Care Provider Unavailabl e Encounter Details Date Type Department Care Team (Late st Contact Info) Description 11/06/2016 Historical Ophthalmology [facility] Ever Remy Jr., M.D. [address] [place] [phone] Social History Tobacco Use Types Packs/Day Years Used Date Smoking Tobacco: Never Sex and Gender Information Value Date Recorded Sex Assigned at Male 12/27/2019 6:45 PM CDT Legal Sex Male 10:19 PM DYE RANGE OPERATOR Gender Identity Male 09/14/2017 7:49 AM DYE RANGE OPERATOR Sexual Orientation Straight 09/14/2017 7: 49 AM DYE RANGE OPERATOR documented as of this encounter Progress [...] Nuclear sclerosis CDM Reports - EYEGEN Id: [id number] Status: Fnl documented in this encounter Plan of Treatment Not on file documented as of this encounter Visit Diagnoses Not on filedocumented in this encounter Additional Health Concerns Infection Onset Date Last Indicated Resolved Time COVID19 Pending 04/24/2021 2021 04/27/2021 9 :07 AM CDT documented as of this encounter Care Teams Home Visitor Relationship Specialty Start Date End Date Elsewhere, Pcp PCP - General Family Medicine 04/04/18 documented as of this encounter
== END 2024-06-13 15:06 | disposition home or self-care (01) ==
LOC: LKVREF 15:06
PROVIDERS: PCP Family Medicine; Visit Provider Family Medicine
DX: E03.9 Hypothyroidism, unspecified (principal)
CPT/HCPCS: 84443

== ENCOUNTER 2025-01-20 08:35 | Outpatient (CLI) | payer MEDICARE, SELFPAY | END 2025-01-20 08:36 | disposition home or self-care (01) | LOC: NFLDREF 01-21 03:05 | PROVIDERS: PCP Family Medicine; Referring Provider Family Medicine; Visit Provider Family Medicine | DX: E03.9 Hypothyroidism, unspecified (principal); Z13.1 Encounter for screening for diabetes mellitus; Z13.220 Encounter for screening for lipoid disorders; Z13.0 Encounter for screening for diseases of the blood and blood-forming organs and certain disorders involving the immune mechanism; Z13.228 Encounter for screening for other metabolic disorders; Z12.5 Encounter for screening for malignant neoplasm of prostate | CPT/HCPCS: 80053; 80061; 84439; 84443; 84481; G0103 ==

== ENCOUNTER 2025-04-30 11:45 | Outpatient (CLI) | payer MEDICARE, SELFPAY | END 2025-04-30 11:46 | disposition home or self-care (01) | LOC: NFLDREF 05-06 11:06 | PROVIDERS: PCP Family Medicine; Referring Provider Family Medicine; Visit Provider Family Medicine | DX: R97.20 Elevated prostate specific antigen [PSA] (principal) | CPT/HCPCS: 84153; 84154 ==